=== PATIENT | female | born 1960 | race Caucasian/White ===

== ENCOUNTER 2019-04-10 13:47 | Outpatient (REF) | payer BC, SELFPAY ==
[2019-04-10 21:02] LABS: HCT 38.3 % (36.0-46.0); HGB 12.6 g/dL (12.0-15.5); Mean Corp. HGB Concentration 32.9 g/dL (32.0-36.0); Mean Corpuscular Hemoglobin 30.7 pg (27.0-33.0); Mean Corpuscular Volume 93.4 fL (80-95); Mean Platelet Volume 11.2 fL (8.0-11.0); Platelet Count 239 x1000/uL (130-400); White Blood Cell Count 5.05 k/cumm (4.4-10.8)
[2019-04-10 21:04] LABS: ALT 46 U/L (14-59); AST 25 U/L (15-37); Albumin 3.8 g/dL (3.4-5.0); Alkaline Phosphatase 96 U/L (46-116); Anion Gap 9.5 mmol/L (3-11); BUN 28 mg/dL (7-18); Bilirubin, Total 0.2 mg/dL (0.2-1.0); CO2 26.5 mmol/L (21.0-32.0); Chloride 105 mmol/L (98-107); Creatine Kinase 91 U/L (26-192); Estimated GFR 45.98 (mL/min/1.73m2); FREE T4 1.01 ng/dL (0.76-1.46); Glucose 95 mg/dL (74-106); Potassium 4.6 mmol/L (3.5-5.1); Sodium 141 mmol/L (136-145)
[2019-04-10 21:44] LABS: ESR 29 mm/hr (0-30)
== END 2019-04-10 14:07 ==
LOC: NCHCN 13:47
PROVIDERS: PCP Internal Medicine; Visit Provider Internal Medicine
DX: I10 Essential (primary) hypertension (principal); R53.83 Other fatigue
CPT/HCPCS: 80053; 82550; 85027; 85652; 84439

== ENCOUNTER 2020-10-22 15:25 | Outpatient (REF) | payer MEDICARE, BC, SELFPAY ==
[2020-10-22 19:19] LABS: Anion Gap 8.6 mmol/L (3-11); BUN 14 mg/dL (7-18); CO2 26.4 mmol/L (21.0-32.0); CREATININE 1.2 mg/dL (0.55-1.02); Calcium 9.5 mg/dL (8.5-10.1); Chloride 105 mmol/L (98-107); Estimated GFR 45.67 (mL/min/1.73m2); Glucose 98 mg/dL (74-106); Potassium 4.4 mmol/L (3.5-5.1); Sodium 140 mmol/L (136-145); TSH 1.07 uIU/mL (0.36-3.74)
[2020-10-22 19:30] LABS: Hemoglobin A1C 5.9 % (<5.7)
== END 2020-10-22 15:26 | disposition home or self-care (01) ==
LOC: NCHCN 15:25
PROVIDERS: PCP Internal Medicine; Visit Provider Internal Medicine
DX: Z00.00 Encounter for general adult medical examination without abnormal findings (principal)
CPT/HCPCS: 80048; 83036; 84443

== ENCOUNTER 2021-09-29 20:17 | Outpatient (REF) | payer MEDICARE, SELFPAY ==
[2021-09-29 22:25] LABS: ALT 38 U/L (14-59); Anion Gap 8.3 mmol/L (3-11); BUN 24 mg/dL (7-18); CO2 26.7 mmol/L (21.0-32.0); CREATININE 1.2 mg/dL (0.55-1.02); Calcium 9.3 mg/dL (8.5-10.1); Chloride 102 mmol/L (98-107); Estimated GFR 45.52 (mL/min/1.73m2); Glucose 103 mg/dL (74-106); LDL CHOLESTEROL 157 mg/dL (<100); Potassium 3.8 mmol/L (3.5-5.1); Sodium 137 mmol/L (136-145)
[2021-09-30 10:07] LABS: Calculated LDL 191 mg/dL (<100); Cholesterol 311 mg/dL (<200); HDL Cholesterol 105 mg/dL (40-60); Triglyceride 79 mg/dL (<150)
== END 2021-09-29 20:18 | disposition home or self-care (01) ==
LOC: NCHCN 20:17
PROVIDERS: PCP Internal Medicine; Visit Provider Internal Medicine
DX: E78.5 Hyperlipidemia, unspecified (principal)
CPT/HCPCS: 80048; 80061; 83721; 84460

== ENCOUNTER 2022-08-15 16:10 | Outpatient (REF) | payer MEDICARE, OTHER, SELFPAY ==
[2022-08-15 20:17] LABS: Anion Gap 9.4 mmol/L (3-11); BUN 17 mg/dL (7-18); CO2 26.6 mmol/L (21.0-32.0); CREATININE 1.3 mg/dL (0.55-1.02); Calcium 9.6 mg/dL (8.5-10.1); Chloride 103 mmol/L (98-107); Estimated GFR 46.49 (mL/min/1.73m2); Glucose 112 mg/dL (74-106); Potassium 4.3 mmol/L (3.5-5.1); Sodium 139 mmol/L (136-145); TSH 1.38 uIU/mL (0.36-3.74)
== END 2022-08-15 16:11 | disposition home or self-care (01) ==
LOC: NCHCN 16:10
PROVIDERS: PCP Internal Medicine; Visit Provider Internal Medicine
DX: I10 Essential (primary) hypertension (principal); R73.03 Prediabetes
CPT/HCPCS: 80048; 84443

== ENCOUNTER 2023-09-13 15:42 | Outpatient (REF) | payer MEDICARE, OTHER, SELFPAY ==
[2023-09-13 21:54] LABS: Bilirubin Negative (Negative); Blood Negative (Negative); Clarity Clear (Clear); Glucose Negative (Negative); Ketones Negative (Negative); Leukocyte Esterase Negative (Negative); Nitrite Negative (Negative); Urobilinogen 0.2 mg/dL (Up to 0.2); pH 6.5 (5-8)
[2023-09-13 21:57] LABS: HGB 13.6 g/dL (11.2-15.7); MCH 31.3 pg (27.0-33.0); MCHC 33.2 % (32.0-36.0); MCV 95 fL (80-95); MPV 10.8 fL (8.0-11.0); Platelet Count 281 10^3/uL (130-400); RBC 4.34 10^6/uL (3.93-5.22); RDW 12.2 % (11.7-14.6); RDW-SD 42.7 fL; WBC 7.98 10^3/uL (4.4-10.8)
[2023-09-13 22:31] LABS: ALT 27 U/L (14-59); AST 18 U/L (15-37); Albumin 3.9 g/dL (3.4-5.0); Alkaline Phosphatase 82 U/L (46-116); Anion Gap 10.1 mmol/L (3-11); BUN 18 mg/dL (7-18); Bilirubin, Total 0.3 mg/dL (0.2-1.0); CO2 26.9 mmol/L (21.0-32.0); CREATININE 1.2 mg/dL (0.55-1.02); Calcium 9.4 mg/dL (8.5-10.1); Calculated LDL 155 mg/dL (<100); Chloride 102 mmol/L (98-107); Cholesterol 268 mg/dL (<200); Estimated GFR 50.55 (mL/min/1.73m2); Glucose 101 mg/dL (74-106); HDL Cholesterol 95 mg/dL (40-60); Potassium 3.6 mmol/L (3.5-5.1); Sodium 139 mmol/L (136-145); TSH 1.01 uIU/Ml (0.36-3.74); Total Protein 7.4 g/dL (6.4-8.2); Triglyceride 90 mg/dL (<150)
[2023-09-13 22:42] LABS: COMMENT (LAB VIEW ONLY) 25.18 mg/dL
== END 2023-09-13 15:43 | disposition home or self-care (01) ==
LOC: NCHCN 15:42
PROVIDERS: PCP Internal Medicine; Visit Provider Internal Medicine
DX: I10 Essential (primary) hypertension (principal); R53.83 Other fatigue
CPT/HCPCS: 80053; 80061; 85027; 81003; 82043; 82570; 84443

== ENCOUNTER 2023-11-13 22:26 | Outpatient (REF) | payer MEDICARE, OTHER, SELFPAY ==
[2023-11-13 19:30] LABS: Magnesium 2.3 mg/dL (1.8-2.4); Vitamin D 25 Total 41.3 ng/mL (30-100)
== END 2023-11-13 22:27 | disposition home or self-care (01) ==
LOC: NCHCN 22:26
PROVIDERS: PCP Internal Medicine; Visit Provider Internal Medicine
DX: R53.82 Chronic fatigue, unspecified (principal); I10 Essential (primary) hypertension; Z79.899 Other long term (current) drug therapy
CPT/HCPCS: 82306; 83735

== ENCOUNTER 2024-09-09 12:42 | Outpatient (REF) | payer MEDICARE, OTHER, SELFPAY ==
[2024-09-09 19:14] LABS: HCT 38.6 % (36.0-46.0); HGB 12.4 g/dL (11.2-15.7); MCH 30.8 pg (27.0-33.0); MCHC 32.1 % (32.0-36.0); MCV 96 fL (80-95); MPV 10.9 fL (8.0-11.0); Platelet Count 277 10^3/uL (130-400); RBC 4.03 10^6/uL (3.93-5.22); RDW 13.1 % (11.7-14.6); RDW-SD 46.5 fL; WBC 5.69 10^3/uL (4.4-10.8)
[2024-09-09 19:30] LABS: Anion Gap 6.6 mmol/L (3-11); BUN 24 mg/dL (7-18); CO2 26.4 mmol/L (21.0-32.0); CREATININE 1.5 mg/dL (0.55-1.02); Calcium 9.4 mg/dL (8.5-10.1); Chloride 106 mmol/L (98-107); Estimated GFR 38.43 (mL/min/1.73m2); Glucose 108 mg/dL (74-106); Potassium 5.3 mmol/L (3.5-5.1); Sodium 139 mmol/L (136-145); TSH 1.22 uIU/mL (0.36-3.74)
== END 2024-09-09 12:43 | disposition home or self-care (01) ==
LOC: NCHCN 12:42
PROVIDERS: PCP Internal Medicine; Visit Provider Internal Medicine
DX: I10 Essential (primary) hypertension (principal); R53.82 Chronic fatigue, unspecified
CPT/HCPCS: 80048; 85027; 84443